=== PATIENT | male | born 1995 | race African-American/Black ===

== ENCOUNTER 2017-09-30 09:44 | Emergency (ER) | payer OTHER ==
[~2017-09-30] VITALS: Ht 185.4 cm; Wt 64.0 kg
[2017-09-30 09:48] VITALS: BP 132/75
== END 2017-09-30 10:30 | disposition home or self-care (01) ==
LOC: ER 09:46
DX: S67.01XA Crushing injury of right thumb, initial encounter (principal); F17.200 Nicotine dependence, unspecified, uncomplicated; W22.03XA Walked into furniture, initial encounter; Y93.89 Activity, other specified; Y92.89 Other specified places as the place of occurrence of the external cause; Y99.8 Other external cause status
CPT/HCPCS: 73140; 99284; A4606; Z7610